=== PATIENT | male | born 1985 | race Caucasian/White ===

== ENCOUNTER 2016-09-22 18:42 | Emergency (ER) | payer SELFPAY ==
--- NOTE | 2016-09-22 21:44 | DIAGNOSTIC IMAGING REPORT ---
PROCEDURE: XR SOFT TISSUE NECK INDICATION: PAIN TECHNIQUE: AP and lateral views. COMPARISON: None. FINDINGS: Epiglottis and prevertebral soft tissues are normal. Bones are remarkable. There is some straightening of the cervical spine. IMPRESSION: 1. Straightening of the cervical spine which may indicate muscular spasm.
--- NOTE | 2016-09-22 21:59 | DIAGNOSTIC IMAGING REPORT ---
PROCEDURE: XR CHEST 2 VIEW INDICATION: COUGH TECHNIQUE: PA and lateral view. COMPARISON: None. FINDINGS: There is a 5 cm right upper lobe cavitary lesion with relatively thick-walled and air-fluid level. Normal left lung. Cardiovascular structures are normal. Bony thorax is unremarkable. IMPRESSION: 1. 5 cm right upper lobe cavitary lesion. Consider pulmonary bacterial abscess and TB/fungal disease. Primary bronchogenic carcinoma or pulmonary metastasis are less likely. 2. Results discussed with Dr. Thao
--- NOTE | 2016-09-22 23:10 | DIAGNOSTIC IMAGING REPORT ---
PROCEDURE: CT THORAX WITH CONTRAST INDICATION: COUGH TECHNIQUE: 125 ml. of Isovue 300 was injected intravenously and axial images were obtained of the chest with coronal and sagittal reformations. COMPARISON: Chest x-ray 09/22/2016. FINDINGS: 5 cm relatively thin-walled cavitary lesion in the right upper lobe with small air fluid level. No additional pulmonary nodules. No adenopathy or effusion. Normal aorta. Heart size is normal. Small hiatal hernia. Bones are unremarkable. IMPRESSION: 1. 5 cm relatively thin wall right upper lobe cavitary lesion. This suggests a pulmonary TB/fungal disease or abscess. The patient's age makes a cavitary primary bronchogenic carcinoma or cavitary metastases less likely. Lack of other lesions makes septic embolus less likely as well. 2. Results discussed with Dr. Thao
--- NOTE | 2016-09-23 00:01 | ED CLINICAL REPORT ---
Clinical Report - Physicians/Mid Levels [facility] [address] [place] [address] 09/22/2016 18:42 Patient: LANA MALDONADO Time Seen: 19:01. Arrived- By private vehicle. Historian- patient. HISTORY OF PRESENT ILLNESS Chief Complaint: Swollen neck, sore lower throat, productive cough. This started about 3 weeks ago, worse today and is still present. Pain described as mild. The patient has had a sore throat. No mouth sores, nasal discharge or congestion, ear pain or toothache. No swollen jaw or face, jaw pain or facial pain. (Patient also notes that he has had a cough productive of mucous initially that now he is coughing up foul smelling chunks of what seems to be tissue. Patient has not had sami hemoptysis although he does note that some of the sputum that he is coughing up brownish tinged. Patient has not traveled recently. He has not been incarcerated. He denies night sweats.). Similar symptoms previously: None. Recent medical care: Not recently seen/assessed. REVIEW OF SYSTEMS The patient has had a subjective fever (today). No eye discomfort, difficulty breathing, chest pain, nausea or diarrhea. No abdominal pain, difficulty with urination, headache, fainting episodes or joint pain. No skin rash, enlarged lymph nodes or vomiting. The patient has had a moderate cough productive of thick, brown sputum. All systems otherwise negative, except as recorded above. PAST HISTORY Problems: Herpetic Gingivostomatitis. Immunizations. Crush Injury, Upper Extremity. Tetanus Status. Additional Surgeries: no known surgeries. Medications: PredniSONE Oral. PriLOSEC Oral. Allergies: Vicodin. SOCIAL HISTORY Never smoker. No alcohol use or drug use. ADDITIONAL NOTES The nursing notes have been reviewed. PHYSICAL EXAM Vital Signs: 09/22/2016 18:53 BP: 145/77. HR: 100. RR: 18. O2 saturation: 98%. Temp: 98.6 F. Pain level now: 10/10. Have been reviewed. Appearance: Alert. No acute distress. Head: Normal external inspection. Eyes: Pupils equal, round and reactive to light. Conjunctivae and eyelids normal. ENT: Nose normal. Pharynx normal. Lips normal. No trismus present. Uvula midline. Neck: Trachea midline. No adenopathy. Neck supple. CVS: Normal heart rate and rhythm. Heart sounds normal. Pulses normal. Respiratory: No respiratory distress. Breath sounds normal. Chest nontender. Abdomen: Soft and nontender. No organomegaly. Skin: Normal skin color. No rash. Normal skin turgor. Extremities: Extremities exhibit normal ROM. Extremities nontender. Neuro: Oriented X 3. No motor deficit. No sensory deficit. LABS, X-RAYS, AND EKG Chest X-ray: Normal heart size. Mediastinum normal. Great vessels normal. Soft tissues normal. No fracture. No bony lesion present. (A medium sized cavitary lesion is noted in the patient's right upper lobe.). Views: PA and lateral. Technique: good. The X-rays were independently viewed by me, interpreted by the radiologist and contemporaneously by me and discussed with the radiologist. Prior films were not available for comparison. Chest CT: Great vessels normal. Mediastinum normal. No fractures noted. (5 cm relatively thin wall right upper lobe cavitary lesion. This suggests a pulmonary TB/fungal disease or abscess. The patient's age makes a cavitary primary bronchogenic carcinoma or cavitary metastases less likely. Lack of other lesions makes septic embolus less likely as well.). Chest CT performed with contrast. The study was independently viewed by me, interpreted by the radiologist and contemporaneously by me and discussed with the radiologist. Prior studies were not available for comparison. Laboratory Tests: Monoscreen: (DONNELL: 09/22/2016 22:30) ( MsgRcvd 09/22/2016 23:00) Final results Test Result Flag Units (Reference) MONOSCREEN NEGATIVE (NEGATIVE) . Pulse Oximetry: 09/22/2016 18:53 O2 saturation: 98%. (FIO2 - room air). Interpretation: normal. PROGRESS AND PROCEDURES Course of Care: The patient, overall, was well-appearing. Patient was worked up for his cough and his sense of swollen neck/enlarged tonsils. [place] screen was negative. Chest x-ray showed a right upper lobe cavitary lesion, which prompted a CT scan of the thorax. This did confirm a cavitary lesion in the right upper lobe centimeters diameter. At this time, due to it being after hours, I could not call pulmonology clinic to set up an appointment for the patient, and I was concerned that the patient would need urgent follow-up for this process. He would need a bronchoscopy with biopsy, which we cannot provide through [facility]. I did speak with Dr. Bowen again, the quality control clerk storage consultant at [facility], and he confirmed that the patient does not need admission but does need to be followed up within the next couple of days. I did discuss with the patient that he would need to call the clinic first thing the next morning I did state to him that if he was unable to get an appointment in a timely manner that he should call me back in the emergency department the day after tomorrow when I am working again and I will make arrangements on his behalf during clinic hours, for him to be seen in the near future in by the quality control clerk. At this point in time Dr. Bowen and has recommended that the patient not be started on any antimicrobials, until he can see pulmonology and a biopsy can be taken to confirm what is going on. Patient counseled in person regarding the patient's stable condition, test results, diagnosis and need for follow-up. Concerns were addressed. Old medical records reviewed. Disposition: Discharged. Condition: stable. CLINICAL IMPRESSION Acute cough. Cavitary lesion in R upper lobe, tubercular vs fungal. INSTRUCTIONS Drink plenty of fluids. (Your case has been discussed with Dr. Hannah, the pulmonology (lung) specialist at [facility]. Your CT scan shows what looks like either a fungal infection or tuberculosis. However, this will have to be sorted out by a quality control clerk, who will need to perform a bronchoscopy (put a camera down to take a look) and biopsy. You should be seen within the next few days for this by the quality control clerk. Please give their clinic a call at the number provided below. If there is any problem at all with getting in within the next several days, please call me (Dr. Thao) at the emergency department, either Thursday evening after 8 pm, or early on morning (between 7 & 8 AM), and we will assist in getting you the needed appointment in a timely manner. For now, as this does not appear to be a bacterial abscess, we will withhold antibiotic treatment until we can be specific (the antibiotics for tuberculosis versus fungus versus bacteria are very different).). Warnings: GENERAL WARNINGS: Return or contact your physician immediately if your condition worsens or changes unexpectedly, if not improving as expected, or if other problems arise. Your Current Medications: CONTINUE TAKING THE FOLLOWING MEDICATIONS: PredniSONE Oral. PriLOSEC Oral. Prescription Medications: Hydrocodone / APAP Liquid 7.5mg/325mg/15 mL: take ten (10) mL orally every 6 hours. Dispense one hundred fifty (150) mL. No refill. (prn cough/pain) OTC Medications: Robitussin DM cough syrup (available over the counter): take two (2) teaspoons orally every 6 hours as needed for cough. Dispense one hundred twenty (120) mL. Follow-up: Follow up with a specialist Pulmonary Clinic/[facility]: in two days. Call for the next available appointment. Reason for referral: Urgent follow-up of ER visit/cavitary lesion in R lung on CT. Understanding of the discharge instructions verbalized by patient. (Electronically signed by Juana Thao MD 09/25/2016 5:18)
--- NOTE | 2016-09-23 00:01 | ED CLINICAL REPORT ---
Clinical Report - Physicians/Mid Levels [facility] [address] [place] [address] 09/22/2016 18:42 Patient: LANA MALDONADO Time Seen: 19:01. Arrived- By private vehicle. Historian- patient. HISTORY OF PRESENT ILLNESS Chief Complaint: Swollen neck, sore lower throat, productive cough. This started about 3 weeks ago, worse today and is still present. Pain described as mild. The patient has had a sore throat. No mouth sores, nasal discharge or congestion, ear pain or toothache. No swollen jaw or face, jaw pain or facial pain. (Patient also notes that he has had a cough productive of mucous initially that now he is coughing up foul smelling chunks of what seems to be tissue. Patient has not had sami hemoptysis although he does note that some of the sputum that he is coughing up brownish tinged. Patient has not traveled recently. He has not been incarcerated. He denies night sweats.). Similar symptoms previously: None. Recent medical care: Not recently seen/assessed. REVIEW OF SYSTEMS The patient has had a subjective fever (today). No eye discomfort, difficulty breathing, chest pain, nausea or diarrhea. No abdominal pain, difficulty with urination, headache, fainting episodes or joint pain. No skin rash, enlarged lymph nodes or vomiting. The patient has had a moderate cough productive of thick, brown sputum. All systems otherwise negative, except as recorded above. PAST HISTORY Problems: Herpetic Gingivostomatitis. Immunizations. Crush Injury, Upper Extremity. Tetanus Status. Additional Surgeries: no known surgeries. Medications: PredniSONE Oral. PriLOSEC Oral. Allergies: Vicodin. SOCIAL HISTORY Never smoker. No alcohol use or drug use. ADDITIONAL NOTES The nursing notes have been reviewed. PHYSICAL EXAM Vital Signs: 09/22/2016 18:53 BP: 145/77. HR: 100. RR: 18. O2 saturation: 98%. Temp: 98.6 F. Pain level now: 10/10. Have been reviewed. Appearance: Alert. No acute distress. Head: Normal external inspection. Eyes: Pupils equal, round and reactive to light. Conjunctivae and eyelids normal. ENT: Nose normal. Pharynx normal. Lips normal. No trismus present. Uvula midline. Neck: Trachea midline. No adenopathy. Neck supple. CVS: Normal heart rate and rhythm. Heart sounds normal. Pulses normal. Respiratory: No respiratory distress. Breath sounds normal. Chest nontender. Abdomen: Soft and nontender. No organomegaly. Skin: Normal skin color. No rash. Normal skin turgor. Extremities: Extremities exhibit normal ROM. Extremities nontender. Neuro: Oriented X 3. No motor deficit. No sensory deficit. LABS, X-RAYS, AND EKG Chest X-ray: Normal heart size. Mediastinum normal. Great vessels normal. Soft tissues normal. No fracture. No bony lesion present. (A medium sized cavitary lesion is noted in the patient's right upper lobe.). Views: PA and lateral. Technique: good. The X-rays were independently viewed by me, interpreted by the radiologist and contemporaneously by me and discussed with the radiologist. Prior films were not available for comparison. Chest CT: Great vessels normal. Mediastinum normal. No fractures noted. (5 cm relatively thin wall right upper lobe cavitary lesion. This suggests a pulmonary TB/fungal disease or abscess. The patient's age makes a cavitary primary bronchogenic carcinoma or cavitary metastases less likely. Lack of other lesions makes septic embolus less likely as well.). Chest CT performed with contrast. The study was independently viewed by me, interpreted by the radiologist and contemporaneously by me and discussed with the radiologist. Prior studies were not available for comparison. Laboratory Tests: Monoscreen: (DONNELL: 09/22/2016 22:30) ( MsgRcvd 09/22/2016 23:00) Final results Test Result Flag Units (Reference) MONOSCREEN NEGATIVE (NEGATIVE) . Pulse Oximetry: 09/22/2016 18:53 O2 saturation: 98%. (FIO2 - room air). Interpretation: normal. PROGRESS AND PROCEDURES Course of Care: The patient, overall, was well-appearing. Patient was worked up for his cough and his sense of swollen neck/enlarged tonsils. [place] screen was negative. Chest x-ray showed a right upper lobe cavitary lesion, which prompted a CT scan of the thorax. This did confirm a cavitary lesion in the right upper lobe centimeters diameter. At this time, due to it being after hours, I could not call pulmonology clinic to set up an appointment for the patient, and I was concerned that the patient would need urgent follow-up for this process. He would need a bronchoscopy with biopsy, which we cannot provide through [facility]. I did speak with Dr. Bowen again, the link assembler sergeant of corrections at [facility], and he confirmed that the patient does not need admission but does need to be followed up within the next couple of days. I did discuss with the patient that he would need to call the clinic first thing the next morning I did state to him that if he was unable to get an appointment in a timely manner that he should call me back in the emergency department the day after tomorrow when I am working again and I will make arrangements on his behalf during clinic hours, for him to be seen in the near future in by the link assembler. At this point in time Dr. Bowen and has recommended that the patient not be started on any antimicrobials, until he can see pulmonology and a biopsy can be taken to confirm what is going on. Patient counseled in person regarding the patient's stable condition, test results, diagnosis and need for follow-up. Concerns were addressed. Old medical records reviewed. Disposition: Discharged. Condition: stable. CLINICAL IMPRESSION Acute cough. Cavitary lesion in R upper lobe, tubercular vs fungal. INSTRUCTIONS Drink plenty of fluids. (Your case has been discussed with Dr. Hannah, the pulmonology (lung) specialist at [facility]. Your CT scan shows what looks like either a fungal infection or tuberculosis. However, this will have to be sorted out by a link assembler, who will need to perform a bronchoscopy (put a camera down to take a look) and biopsy. You should be seen within the next few days for this by the link assembler. Please give their clinic a call at the number provided below. If there is any problem at all with getting in within the next several days, please call me (Dr. Thao) at the emergency department, either Thursday evening after 8 pm, or early on morning (between 7 & 8 AM), and we will assist in getting you the needed appointment in a timely manner. For now, as this does not appear to be a bacterial abscess, we will withhold antibiotic treatment until we can be specific (the antibiotics for tuberculosis versus fungus versus bacteria are very different).). Warnings: GENERAL WARNINGS: Return or contact your physician immediately if your condition worsens or changes unexpectedly, if not improving as expected, or if other problems arise. Your Current Medications: CONTINUE TAKING THE FOLLOWING MEDICATIONS: PredniSONE Oral. PriLOSEC Oral. Prescription Medications: Hydrocodone / APAP Liquid 7.5mg/325mg/15 mL: take ten (10) mL orally every 6 hours. Dispense one hundred fifty (150) mL. No refill. (prn cough/pain) OTC Medications: Robitussin DM cough syrup (available over the counter): take two (2) teaspoons orally every 6 hours as needed for cough. Dispense one hundred twenty (120) mL. Follow-up: Follow up with a specialist Pulmonary Clinic/[facility]: in two days. Call for the next available appointment. Reason for referral: Urgent follow-up of ER visit/cavitary lesion in R lung on CT. Understanding of the discharge instructions verbalized by patient. (Electronically signed by Juana Thao MD 09/25/2016 5:18)
--- NOTE | 2016-09-23 00:02 | ED NURSING NOTES ---
Clinical Report - Nurses [facility] [address] [place] [address] 09/22/2016 18:42 Patient: LANA MALDONADO TRIAGE Triage time 18:54. Chief Complaint: SORE THROAT. --18:59 Sheriff Paul R.N. 18:53 09/22/16. BP: 145/77. HR: 100. RR: 18. O2 saturation: 98%. Temp: 98.6 F. Pain level now: 01/06. --18:59 Sheriff Paul R.N. Weight: 87.9 kg stated. Height/Length: 71 inches Per Patient. BMI: 27. --18:53 Sheriff Paul R.N. Medications PriLOSEC Oral. --18:56 Sheriff Paul R.N. PredniSONE Oral. --18:57 Sheriff Paul R.N. Allergies Vicodin. --18:57 Sheriff Paul R.N. History Onset. (3 weeks ago). ( Coughing out tissue. Went to PCP for evaluation, given steroids.). He has had ear pain. Reports enlarged lymph nodes. SURGERY HX: No history of previous surgery. SOCIAL HX: Never smoker. No alcohol use or drug use. FALL RISK ASSESSMENT: Fall risk assessment completed. No fall risk identified. NUTRITIONAL RISK ASSESSMENT: The nutritional risk assessment revealed no deficiencies. FUNCTIONAL ASSESSMENT: Functional assessment: no impairments noted. LEARNING NEEDS ASSESSMENT: The learning needs assessment revealed no barriers. SKIN INTEGRITY ASSESSMENT: Skin integrity risk assessment completed. No skin integrity risk identified. --18:59 Sheriff Paul R.N. PROBLEMS: Herpetic Gingivostomatitis. Fever. Viral Disease. Immunizations. Crush Injury, Upper Extremity. Tetanus Status. --18:58 Sheriff Paul R.N. PHYSICAL ASSESSMENT Ambulatory to room. GENERAL / NEURO / PSYCH: Alert. Oriented X 4. Appears in no acute distress. HEENT: Voice within normal limits. Mucous membranes are pink. RESPIRATORY: Respirations not labored. CVS: Capillary refill less than 2 seconds. SKIN: Skin is warm and dry. --18:59 Sheriff Paul R.N. NURSING PROGRESS NOTES Head of bed elevated. Two patient identifiers checked. Call light placed in reach. Side rails up x 2. Bed placed in lowest position. Brakes of bed on. --18:59 Sheriff Paul R.N. 20:55 09/22/2016 Hydrocodone-APAP Liquid (Hydrocodone-Acetaminophen) PO 15 mL given. Allergies verified, confirmed 5 rights and sedative warning given to the patient. --20:55 Sheriff Paul R.N. 22:35 09/22/2016 Site #1 started via IV in the right wrist with an 20g angiocath, with aseptic technique and good blood return; one attempt. Blood drawn: rainbow set. Labeled in the presence of the patient and sent to the lab. Saline lock flushed with 10 mL saline. --22:35 Sheriff Paul R.N. ( Report from Sheriff PONCE for transfer of [facility].). --23:12 Paul Zazueta R.N. 00:22 09/23/2016 IV Saline Lock Drip IV Discontinued: upon discharge. Total amount infused: 10 mL. IV patency established. IV site checked: no pain, redness, or swelling. IV flushed thoroughly. --00:27 Paul Zazueta R.N. DISPOSITION / DISCHARGE Condition at departure: improved. No learning barriers present. Discharge instructions provided and reviewed with the patient. Reviewed medication(s) side effects, precautions, dosing and course information. Prescription(s) given to the patient. Reviewed referral to a special education inclusion teacher and primary care physician for followup. Patient verbalized understanding. Written instructions provided in Bahamian. The patient was discharged home and accompanied by spouse. He left the Emergency Department via private vehicle. Spouse driving. --00:28 Paul Zazueta R.N. 00:26 09/23/16. BP: 120/74. HR: 83. RR: 14. O2 saturation: 97%. Temp: 98.2 F. Pain level now: 0/10. --00:28 Paul Zazueta R.N. Departure time: 00:28. --: Paul Zazueta R.N. Locked/Released at 09/23/2016 0:29 by Paul Zazueta R.N.
--- NOTE | 2016-09-23 00:02 | ED NURSING NOTES ---
Clinical Report - Nurses [facility] [address] [place] [address] 09/22/2016 18:42 Patient: LANA MALDONADO TRIAGE Triage time 18:54. Chief Complaint: SORE THROAT. --18:59 Sheriff Paul R.N. 18:53 09/22/16. BP: 145/77. HR: 100. RR: 18. O2 saturation: 98%. Temp: 98.6 F. Pain level now: 01/06. --18:59 Sheriff Paul R.N. Weight: 87.9 kg stated. Height/Length: 71 inches Per Patient. BMI: 27. --18:53 Sheriff Paul R.N. Medications PriLOSEC Oral. --18:56 Sheriff Paul R.N. PredniSONE Oral. --18:57 Sheriff Paul R.N. Allergies Vicodin. --18:57 Sheriff Paul R.N. History Onset. (3 weeks ago). ( Coughing out tissue. Went to PCP for evaluation, given steroids.). He has had ear pain. Reports enlarged lymph nodes. SURGERY HX: No history of previous surgery. SOCIAL HX: Never smoker. No alcohol use or drug use. FALL RISK ASSESSMENT: Fall risk assessment completed. No fall risk identified. NUTRITIONAL RISK ASSESSMENT: The nutritional risk assessment revealed no deficiencies. FUNCTIONAL ASSESSMENT: Functional assessment: no impairments noted. LEARNING NEEDS ASSESSMENT: The learning needs assessment revealed no barriers. SKIN INTEGRITY ASSESSMENT: Skin integrity risk assessment completed. No skin integrity risk identified. --18:59 Sheriff Paul R.N. PROBLEMS: Herpetic Gingivostomatitis. Fever. Viral Disease. Immunizations. Crush Injury, Upper Extremity. Tetanus Status. --18:58 Sheriff Paul R.N. PHYSICAL ASSESSMENT Ambulatory to room. GENERAL / NEURO / PSYCH: Alert. Oriented X 4. Appears in no acute distress. HEENT: Voice within normal limits. Mucous membranes are pink. RESPIRATORY: Respirations not labored. CVS: Capillary refill less than 2 seconds. SKIN: Skin is warm and dry. --18:59 Sheriff Paul R.N. NURSING PROGRESS NOTES Head of bed elevated. Two patient identifiers checked. Call light placed in reach. Side rails up x 2. Bed placed in lowest position. Brakes of bed on. --18:59 Sheriff Paul R.N. 20:55 09/22/2016 Hydrocodone-APAP Liquid (Hydrocodone-Acetaminophen) PO 15 mL given. Allergies verified, confirmed 5 rights and sedative warning given to the patient. --20:55 Sheriff Paul R.N. 22:35 09/22/2016 Site #1 started via IV in the right wrist with an 20g angiocath, with aseptic technique and good blood return; one attempt. Blood drawn: rainbow set. Labeled in the presence of the patient and sent to the lab. Saline lock flushed with 10 mL saline. --22:35 Sheriff Paul R.N. ( Report from Sheriff PONCE for transfer of [facility].). --23:12 Paul Zazueta R.N. 00:22 09/23/2016 IV Saline Lock Drip IV Discontinued: upon discharge. Total amount infused: 10 mL. IV patency established. IV site checked: no pain, redness, or swelling. IV flushed thoroughly. --00:27 Paul Zazueta R.N. DISPOSITION / DISCHARGE Condition at departure: improved. No learning barriers present. Discharge instructions provided and reviewed with the patient. Reviewed medication(s) side effects, precautions, dosing and course information. Prescription(s) given to the patient. Reviewed referral to a barker peeler and primary care physician for followup. Patient verbalized understanding. Written instructions provided in Cypriot. The patient was discharged home and accompanied by spouse. He left the Emergency Department via private vehicle. Spouse driving. --00:28 Paul Zazueta R.N. 00:26 09/23/16. BP: 120/74. HR: 83. RR: 14. O2 saturation: 97%. Temp: 98.2 F. Pain level now: 0/10. --00:28 Paul Zazueta R.N. Departure time: 00:28. --: Paul Zazueta R.N. Locked/Released at 09/23/2016 0:29 by Paul Zazueta R.N.
--- NOTE | 2016-09-23 00:02 | ED ORDER SUMMARY ---
..... Patient: LANA MALDONADO OrderSheet [facility] VisitID: [id number] [address] [place] [address] 30y, M Registration Date/Time: 09/22/2016 ORDER SHEET Weight: 87.9 kg (stated) Allergies: Vicodin GENERAL ORDERS: Soft Tissue Neck Urgent (20:39 09/22/2016 Anna PAGE) (Ack 20:42 LMuller) (20:54 MCampbell) Chest 2V Urgent (20:40 09/22/2016 Anna PAGE) (Ack 20:42 LMuller) (20:54 MCampbell) Monoscreen Urgent (20:40 09/22/2016 Anna PAGE) (Ack 20:42 LMuller) (0:27 Singh R.N.) CT Thorax w Cont (No) (N/A) Urgent (21:40 09/22/2016 Anna PAGE) (Ack 21:42 LMuller) (22:47 LMuller) MEDICATION ORDERS: Hydrocodone-APAP Liquid PO 5/325 mg (NOW, HIGH ALERT MEDICATION) (20:41 09/22/2016 Anna PAGE) (Cancelled: Other20:51 SSambou R.N.) Hydrocodone-APAP Liquid PO 7.5/325 mg (NOW, HIGH ALERT MEDICATION) (20:51 09/22/2016 SSambou R.N. verbal order read back to Anna PAGE) (20:55 SSambou R.N.) IV FLUIDS: IV Saline Lock (21:40 09/22/2016 Anna PAGE) (22:35 SSambou R.N.) ORDER SHEET NOTES: [Electronically signed by Paul Zazueta R.N. (00:29 09/23/2016)] [Electronically signed by Juana Thao MD (05:18 09/25/2016)] [Electronically locked/signed by Paul Zazueta R.N. (00:29 09/23/2016)]
--- NOTE | 2016-09-23 00:02 | ED ORDER SUMMARY ---
..... Patient: LANA MALDONADO OrderSheet [facility] VisitID: [id number] [address] [place] [address] 30y, M Registration Date/Time: 09/22/2016 ORDER SHEET Weight: 87.9 kg (stated) Allergies: Vicodin GENERAL ORDERS: Soft Tissue Neck Urgent (20:39 09/22/2016 Anna PAGE) (Ack 20:42 LMuller) (20:54 MCampbell) Chest 2V Urgent (20:40 09/22/2016 Anna PAGE) (Ack 20:42 LMuller) (20:54 MCampbell) Monoscreen Urgent (20:40 09/22/2016 Anna PAGE) (Ack 20:42 LMuller) (0:27 Singh R.N.) CT Thorax w Cont (No) (N/A) Urgent (21:40 09/22/2016 Anna PAGE) (Ack 21:42 LMuller) (22:47 LMuller) MEDICATION ORDERS: Hydrocodone-APAP Liquid PO 5/325 mg (NOW, HIGH ALERT MEDICATION) (20:41 09/22/2016 Anna PAGE) (Cancelled: Other20:51 SSambou R.N.) Hydrocodone-APAP Liquid PO 7.5/325 mg (NOW, HIGH ALERT MEDICATION) (20:51 09/22/2016 SSambou R.N. verbal order read back to Anna PAGE) (20:55 SSambou R.N.) IV FLUIDS: IV Saline Lock (21:40 09/22/2016 Anna PAGE) (22:35 SSambou R.N.) ORDER SHEET NOTES: [Electronically signed by Paul Zazueta R.N. (00:29 09/23/2016)] [Electronically signed by Juana Thao MD (05:18 09/25/2016)] [Electronically locked/signed by Paul Zazueta R.N. (00:29 09/23/2016)]
--- NOTE | 2016-09-25 05:18 | ED MED RECONCILIATION SUMMARY ---
Patient: LANA MALDONADO Medication Reconciliation Report [facility] VisitID: [id number] [address] [place] [address] 30y, M Registration Date/Time: 09/22/2016 Weight: 87.9 kg Height/Length: 71 in. BMI: 27.0 ALLERGIES: Vicodin The patient's Home Medications are listed below: CONTINUE TAKING THE FOLLOWING MEDICATIONS: PredniSONE Oral PriLOSEC Oral The source(s) of the original Home Medication information: Not obtained. The following Medications were given to the patient in the Emergency Department: Hydrocodone-APAP Liquid [PO] PO 15 mL, administered: 09/22/2016 8:55:00 PM The following Medications were prescribed to the patient: Hydrocodone / APAP Liquid 7.5mg/325mg/15 mL: take ten (10) mL orally every 6 hours. Dispense one hundred fifty (150) mL. No refill.(prn cough/pain) -- Juana Thao MD Robitussin DM cough syrup (available over the counter): take two (2) teaspoons orally every 6 hours as needed for cough. Dispense one hundred twenty (120) mL. -- Juana Thao MD
--- NOTE | 2016-09-25 05:18 | ED MAR SUMMARY ---
..... Medication Administration Record [facility] [address] [place] [address] Patient: LANA MALDONADO Visit ID: [id number] 30y, M Weight: 87.9 kg Height/Length: 71 in BMI: 27 ALLERGIES: Vicodin Given 20:55 09/22/2016 Sheriff Paul R.N. Medication Administered: HYDROCODONE-APAP LIQUID [PO] (HYDROCODONE-ACETAMINOPHEN), Dose: 15 mL PO. Medication Ordered: Hydrocodone-APAP Liquid PO 7.5/325 mg (NOW, HIGH ALERT MEDICATION).
--- NOTE | 2016-09-25 05:18 | ED MED RECONCILIATION SUMMARY ---
Patient: LANA MALDONADO Medication Reconciliation Report [facility] VisitID: [id number] [address] [place] [address] 30y, M Registration Date/Time: 09/22/2016 Weight: 87.9 kg Height/Length: 71 in. BMI: 27.0 ALLERGIES: Vicodin The patient's Home Medications are listed below: CONTINUE TAKING THE FOLLOWING MEDICATIONS: PredniSONE Oral PriLOSEC Oral The source(s) of the original Home Medication information: Not obtained. The following Medications were given to the patient in the Emergency Department: Hydrocodone-APAP Liquid [PO] PO 15 mL, administered: 09/22/2016 8:55:00 PM The following Medications were prescribed to the patient: Hydrocodone / APAP Liquid 7.5mg/325mg/15 mL: take ten (10) mL orally every 6 hours. Dispense one hundred fifty (150) mL. No refill.(prn cough/pain) -- Juana Thao MD Robitussin DM cough syrup (available over the counter): take two (2) teaspoons orally every 6 hours as needed for cough. Dispense one hundred twenty (120) mL. -- Juana Thao MD
--- NOTE | 2016-09-25 05:18 | ED MAR SUMMARY ---
..... Medication Administration Record [facility] [address] [place] [address] Patient: LANA MALDONADO Visit ID: [id number] 30y, M Weight: 87.9 kg Height/Length: 71 in BMI: 27 ALLERGIES: Vicodin Given 20:55 09/22/2016 Sheriff Paul R.N. Medication Administered: HYDROCODONE-APAP LIQUID [PO] (HYDROCODONE-ACETAMINOPHEN), Dose: 15 mL PO. Medication Ordered: Hydrocodone-APAP Liquid PO 7.5/325 mg (NOW, HIGH ALERT MEDICATION).
--- NOTE | 2016-09-25 05:18 | ED DISCHARGE INSTRUCTIONS ---
Patient: LANA MALDONADO General Instructions [facility] VisitID: [id number] [address] [place] [address] 30y, M Registration Date/Time: 09/22/2016 Acute cough. Cavitary lesion in R upper lobe, tubercular vs fungal. INSTRUCTIONS Drink plenty of fluids. (Your case has been discussed with Dr. Hannah, the pulmonology (lung) specialist at [facility]. Your CT scan shows what looks like either a fungal infection or tuberculosis. However, this will have to be sorted out by a machine presser, who will need to perform a bronchoscopy (put a camera down to take a look) and biopsy. You should be seen within the next few days for this by the machine presser. Please give their clinic a call at the number provided below. If there is any problem at all with getting in within the next several days, please call me (Dr. Thao) at the emergency department, either Thursday evening after 8 pm, or early on morning (between 7 & 8 AM), and we will assist in getting you the needed appointment in a timely manner. For now, as this does not appear to be a bacterial abscess, we will withhold antibiotic treatment until we can be specific (the antibiotics for tuberculosis versus fungus versus bacteria are very different).). Warnings: GENERAL WARNINGS: Return or contact your physician immediately if your condition worsens or changes unexpectedly, if not improving as expected, or if other problems arise. Your Current Medications: CONTINUE TAKING THE FOLLOWING MEDICATIONS: PredniSONE Oral. PriLOSEC Oral. Prescription Medications: Hydrocodone / APAP Liquid 7.5mg/325mg/15 mL: take ten (10) mL orally every 6 hours. Dispense one hundred fifty (150) mL. No refill. (prn cough/pain) OTC Medications: Robitussin DM cough syrup (available over the counter): take two (2) teaspoons orally every 6 hours as needed for cough. Dispense one hundred twenty (120) mL. Follow-up: Follow up with a specialist Pulmonary Clinic/[facility]: in two days. Call for the next available appointment. Reason for referral: Urgent follow-up of ER visit/cavitary lesion in R lung on CT. Understanding of the discharge instructions verbalized by patient. (Electronically signed by Juana Thao MD 09/25/2016 5:18)
--- NOTE | 2016-09-25 05:18 | ED DISCHARGE INSTRUCTIONS ---
Patient: LANA MALDONADO General Instructions [facility] VisitID: [id number] [address] [place] [address] 30y, M Registration Date/Time: 09/22/2016 Acute cough. Cavitary lesion in R upper lobe, tubercular vs fungal. INSTRUCTIONS Drink plenty of fluids. (Your case has been discussed with Dr. Hannah, the pulmonology (lung) specialist at [facility]. Your CT scan shows what looks like either a fungal infection or tuberculosis. However, this will have to be sorted out by a sidewalk repairer, who will need to perform a bronchoscopy (put a camera down to take a look) and biopsy. You should be seen within the next few days for this by the sidewalk repairer. Please give their clinic a call at the number provided below. If there is any problem at all with getting in within the next several days, please call me (Dr. Thao) at the emergency department, either Thursday evening after 8 pm, or early on morning (between 7 & 8 AM), and we will assist in getting you the needed appointment in a timely manner. For now, as this does not appear to be a bacterial abscess, we will withhold antibiotic treatment until we can be specific (the antibiotics for tuberculosis versus fungus versus bacteria are very different).). Warnings: GENERAL WARNINGS: Return or contact your physician immediately if your condition worsens or changes unexpectedly, if not improving as expected, or if other problems arise. Your Current Medications: CONTINUE TAKING THE FOLLOWING MEDICATIONS: PredniSONE Oral. PriLOSEC Oral. Prescription Medications: Hydrocodone / APAP Liquid 7.5mg/325mg/15 mL: take ten (10) mL orally every 6 hours. Dispense one hundred fifty (150) mL. No refill. (prn cough/pain) OTC Medications: Robitussin DM cough syrup (available over the counter): take two (2) teaspoons orally every 6 hours as needed for cough. Dispense one hundred twenty (120) mL. Follow-up: Follow up with a specialist Pulmonary Clinic/[facility]: in two days. Call for the next available appointment. Reason for referral: Urgent follow-up of ER visit/cavitary lesion in R lung on CT. Understanding of the discharge instructions verbalized by patient. (Electronically signed by Juana Thao MD 09/25/2016 5:18)
== END 2016-09-23 00:29 | disposition home or self-care (01) ==
LOC: ED SRH 18:42
DX: R91.1 Solitary pulmonary nodule (principal); R05 Cough; Z79.899 Other long term (current) drug therapy; Z88.5 Allergy status to narcotic agent
CPT/HCPCS: 98370